=== PATIENT | female | born 1965 | race Caucasian/White ===

== ENCOUNTER → 2016-09-05 16:49 | Outpatient (CLI) | payer OTHER ==
[2012-01-23 11:44] VITALS: BMI 26.7
== END | disposition home or self-care (01) ==
LOC: D.MAMMO 13:15
DX: Z12.31 Encounter for screening mammogram for malignant neoplasm of breast (principal)

== ENCOUNTER 2017-05-28 11:14 | Emergency (ER) | payer BC ==
[2012-01-23 11:44] VITALS: BMI 26.7
== END 2017-05-28 13:17 | disposition home or self-care (01) ==
LOC: D.ER 11:14
DX: S53.402A Unspecified sprain of left elbow, initial encounter (principal); V03.90XA Pedestrian on foot injured in collision with car, pick-up truck or van, unspecified whether traffic or nontraffic accident, initial encounter; Y93.89 Activity, other specified; Y92.89 Other specified places as the place of occurrence of the external cause; S93.402A Sprain of unspecified ligament of left ankle, initial encounter; S50.312A Abrasion of left elbow, initial encounter; S90.512A Abrasion, left ankle, initial encounter

== ENCOUNTER 2017-09-25 11:18 | Outpatient (CLI) | payer BC ==
[~2017-09-25] VITALS: Ht 170.2 cm; Wt 78.2 kg
--- NOTE | ~2017-09-25 | HEMODYNAMI ---
PATIENT:SEYMOUR WHITNEY MEDICAL RECORD: [id number] : 61 LOCATION:[facility] ADMISSION DATE: 09/25/17 Generatedon:09/25/201715:47 Patient name: SEYMOUR WHITNEY Patient #: [id number] SSN: : 1965 Date of study: 09/25/2017 Page: Of Hemodynamic Procedure Report Patient Data Patient Demographics Procedure consent was obtained First Name: SEYMOUR Gender: Female Last Name: DEVONTE : 1965 Middle Initial: AURORA Age: 52 year(s) Patient #: [id number] Race: Unknown Additional ID: [id number] Contact details Address: [place] [address] State: [place] City: [place] Zip code: [address] Past Medical History Allergies Allergen Reaction Date Comments Reported Other allergy 09/25/2017 PCN Admission Admission Data Admission Date: 09/25/2017 Admission Time: 11:18 Admit Source: Other Lab Results Lab Result Date: 09/25/2017 Lab Result Time: 0:47 Biochemistry Name Units Result Min Max BUN mg/dl 7 --(*---)-- 7 18 Creatinine mg/dl 0.6 --(*---)-- 0.6 1.3 CBC Name Units Result Min Max Hematocrit % 38.9 *-(----)-- 42 54 Hemoglobin g/dl 13.8 --(*---)-- 13.5 17.5 Procedure Procedure Types Cath Procedure Diagnostic Procedure LHC LH w/Coronaries Sedation Charges Moderate Sedation up to 15 minutes PCI Procedure Coronary Stent Coronary Stent Initial Procedure Description Procedure Date Procedure Date: 09/25/2017 Procedure Start Time: 15:04 Procedure End Time: 15:31 Procedure Staff Name Function Arvind Mao MD Performing Physician Anthony Wheat RT Monitor Kaveh Huerta RN Nurse Evie Shabazz RT Scrub Procedure Data Cath Procedure Fluoroscopy Diagnostic fluoroscopy Total fluoroscopy Time: 5.1 time: 5.1 min min Diagnostic fluoroscopy Total fluoroscopy dose: 506 dose: 506 mGy mGy Contrast Material Contrast Material Type Amount (ml) Isovue 300 63 Entry Location Entry Primary Successful Side Size Upsize Upsize Entry Closure Escamilla ccessful Closure Location (Fr) 1 (Fr) 2 (Fr) Remarks Device Remarks Radial Right 6 Fr Mechanical artery Short Compression Femoral Right 5 Fr 6 Fr Exoseal artery Short Estimated blood loss: 10 ml Diagnostic catheters Device Type Used For End Catheter Placement DIAGNOSTIC Eureka 110cm 5 Procedure Fr catheter ([id number]) MULTIPACK JL 4.0 5Fr Procedure catheter MULTIPACK 3DRC 5Fr Procedure catheter MULTIPACK Pigtail 5 Fr Procedure catheter Procedure Complications No complications Procedure Medications Medication Administration Route Dosage 0.9% NaCl I.V. 100 ml/hr Oxygen etCO2 Nasal cannula 2 l/min Heparin Flush Bag added to field 2 bags (1000units/500ml NS) Lidocaine 2% added to field 20 Radial Cocktail added to field 1 syringe (Verapomil 2mg/Nitro 400mcg/Heparin 1500units) Versed I.V. 1 mg Fentanyl I.V. 50 mcg Radial Cocktail I.A. 1 syringe (Verapomil 2mg/Nitro 400mcg/Heparin 1500units) Versed I.V. 1 mg Fentanyl I.V. 50 mcg Heparin Bolus I.V. 5000 units Integrilin (Bolus I.V. 6.8 ml 2mg/ml) Integrilin (Bolus wasted 3.2 ml 2mg/ml) Plavix P.O. 600 mg Zofran I.V. 4 mg Hemodynamics Rest HGB: 13.8 (g/dl) Heart Rate: 74 (bpm) Pressure Samples Time Site Value (mmHg) Purpose Heart Use Rate(bpm) 15:17 LV 165/11,13 Snapshot 92 15:18 LV 153/2,13 Pullback 87 15:18 AO 152/76(112) Pullback 87 Gradients Valve Time Site 1 Site 2 Mean SEP/DFP Peak To Heart Use (mmHg) (sec/min) Peak Rate (mmHg) (bpm) Aortic 15:18 LV AO 6 17 1 87 153/2,13 152/76(112) Calculations Valve P-P Mean Valve Index Valve Source Name Gradient Area Flow (cm2) Aortic 1 6 1 6 Snapshots Pre Cath Intra NCS Post Cath Vital Signs Time Heart Resp SPO2 etCO2 NIBP (mmHg) Rhythm Pain Sedation Rate (ipm) (%) (mmHg) Status Level (bpm) 15:01:43 75 15 98 38.2 156/73(124) NSR 0 (11) 10(A) , No pain 15:06:29 80 19 98 37.4 142/79(102) NSR 0 (11) 10(A) , No pain 15:11:14 88 12 95 38.2 136/79(98) NSR 0 (11) 10(A) , No pain 15:16:01 92 14 99 39.7 138/74(112) NSR 0 (11) 10(A) , No pain 15:20:45 83 13 100 38.2 142/77(115) NSR 0 (11) 10(A) , No pain 15:25:32 83 14 100 38.2 148/72(106) NSR 0 (11) 10(A) , No pain 15:30:13 82 13 100 36 135/74(104) NSR 0 (11) 10(A) , No pain Medications Time Medication Route Dose Verified Delivered Reason Not es Effectiveness by by 15:01:56 0.9% NaCl I.V. 100 Kaveh Kaveh Per physician ml/hr Deanna Huerta RN RN 15:02:10 Oxygen etCO2 2 l/min Kaveh Kaveh Per physician Nasal Angelinaigan Deanna cannula RN RN 15:02:22 Heparin Flush added 2 bags Kaveh Kaveh used for Bag to Lorigan Lorigan procedure (1000units/500ml RN RN NS) 15:02:31 Lidocaine 2% added 20ml Kaveh Kaveh for local to vial Lorigan Lorigan anesthetic RN RN 15:02:42 Radial Cocktail added 1 Kaveh Kaveh used for (Verapomil to syringe Lorigan Lorigan procedure 2mg/Nitro RN RN 400mcg/Hepari 15:02:56 Versed I.V. 1 mg Kaveh Kaveh for sedation Deanna Huerta RN RN 15:03:05 Fentanyl I.V. 50 mcg Kaveh Kaveh for sedation Deanna Huerta RN RN 15:06:25 Radial Cocktail I.A. 1 Kaveh Arvind for (Verapomil syringe Lorigan Daylin vasodilation 2mg/Nitro JACKY TANG 400mcg/Hepari 15:06:32 Versed I.V. 1 mg Kaveh Kaveh for sedation Deanna Huerta RN RN 15:06:37 Fentanyl I.V. 50 mcg Kaveh Kaveh for sedation Deanna Huerta RN RN 15:20:29 Heparin Bolus I.V. 5000 Kaveh Kaveh for units Deanna Huerta anticoagulation RN RN 15:20:44 Integrilin I.V. 6.8 ml Kaveh Kaveh for (Bolus 2mg/ml) Deanna Huerta antiplatelet RN RN therapy 15:21:35 Integrilin wasted 3.2ml Kaveh Kaveh to sharp's (Bolus 2mg/ml) Deanna Huerta RN RN 15:26:26 Plavix P.O. 600 mg Kaveh Kaveh for Deanna Huerta antiplatelet RN RN therapy 15:47:13 Zofran I.V. 4 mg Kaveh Kaveh for nausea Deanna Huerta RN electric meter repairer Log Time Note 14:41:31 Informed consent obtained and on chart 14:41:34 Admit Source: Other 14:41:46 Diagnostic Cath status Elective 14:41:47 Kaveh Huerta RN sent for patient. Start room use. 14:41:48 Time tracking: Regular hours (M-F 7:00 - 5:00) 14:41:51 Plan of Care:Hemodynamics will remain stable., Cardiac rhythm will remain stable., Comfort level will be maintained., Respiratory function will remain adequate., Patient/ family verbilizes understanding of procedure., Procedure tolerated without complication., Recovers from procedure without complications.. 14:43:11 HCG/Urine : completed and on chart, negative 14:48:39 Patient received from Pre/Post Procedure Room to CCL 1 Alert and oriented. Tansferred to table in Supine position. 14:48:41 Correct patient and procedure confirmed by team. 14:48:41 Warm blankets applied, and dale hugger turned on for patient comfort. 14:48:42 ECG and BP/O2 sat monitors applied to patient. 14:48:51 H&P Date Dictated: 09/24/2017 Within 30 days and on chart., H&P Addendum completed by physician on day of procedure. (MUST COMPLETE FOR ALL OUTPATIENTS). 14:48:52 Pre-op teaching completed and patient verbalized understanding. 14:48:52 Pre-procedure instructions explained to patient. 14:48:54 Family in waiting room. 14:48:55 Patient NPO since Midnight. 14:49:08 Patient allergic to Other allergyPCN 15:00:43 Vital chart was started 15:00:44 Baseline sample Acquired. 15:00:47 Rhythm: sinus rhythm 15:00:49 Full Disclosure recording started 15:00:51 Is the patient allergic to Iodine/contrast media? No. 15:00:53 Is patient on blood thinner?No 15:00:55 Patient diabetic? No. 15:01:01 Previous problem with sedation/anesthesia? Yes NAUSEA 15:01:04 Snore? Yes 15:01:05 Sleep apnea? No 15:01:06 Opens mouth fully? Yes 15:01:06 Deviated septum? No 15:01:07 Sticks out tongue? Yes 15:01:08 Airway obstruction? No ? 15:01:13 Dentures? Yes IN TIGHT 15:01:16 Pre procedure: right dorsailis pedis pulse 2+ Normal; easily identifiable; not easily obliterated 15:01:17 Modified Julio C's test Ulnar < 7 seconds 15:01:19 Patient pain scale 0/10 ?. 15:01:22 IV patent on arrival in left forearm with 0.9% NaCl at [facility]. 15:01:56 0.9% NaCl 100 ml/hr I.V. was administered by Kaveh Huerta RN; Per physician; 15:02:06 Lab Result : Hemoglobin 13.8 g/dl 15:02:06 Lab Result : Hematocrit 38.9 % 15:02:06 Lab Result : BUN 7 mg/dl 15:02:06 Lab Result : Creatinine 0.6 mg/dl 15:02:09 Lab results completed and on chart. 15:02:10 Oxygen 2 l/min etCO2 Nasal cannula was administered by Kaveh Huerta RN; Per physician; 15:02:11 Right Radial & Right Groin area was prepped with chlora-prep and draped in sterile fashion 15:02:13 Sharps counted by scrub and verified by R.N. 15:02:13 Alarms reviewed by R. N. 15:02:21 Use device set Radial Dx or PCI 15:02:22 Medline Cath Pack ([id number]) opened to sterile field. 15:02:22 ACIST Syringe (21669) opened to sterile field. 15:02:22 Heparin Flush Bag (1000units/500ml NS) 2 bags added to field was administered by Kaveh Huerta RN; used for procedure; 15:02:23 Bag Decanter (2002S) opened to sterile field. 15:02:24 Tegaderm 4 x 4 (1626W) opened to sterile field. 15:02:24 ACIST Manifold (97558) opened to sterile field. 15:02:24 ACIST Hand Control (65057) opened to sterile field. 15:02:25 MBrace Wrist Support ([id number]) opened to sterile field. 15:02:26 SHEATH 6Fr Prelude Radial ([id number]) opened to sterile field. 15:02:27 DIAGNOSTIC WIRE .035 260cm J wire (629099) opened to sterile field. 15:02:31 Lidocaine 2% 20ml vial added to field was administered by Kaveh Huerta RN; for local anesthetic; 15:02:34 Physician arrived 15:02:35 --------ALL STOP TIME OUT------ 15:02:36 Final Timeout: patient, procedure, and site verified with staff and physician. All members of the team are in agreement. 15:02:37 Right Radial & Right Groin site verified by team. 15:02:40 Physical assessment completed. ASA score P 2 - A patient with mild systemic disease as per Arvind Mao MD. 15:02:42 Radial Cocktail (Verapomil 2mg/Nitro 400mcg/Heparin 1500units) 1 syringe added to field was administered by Kaveh Huerta RN; used for procedure; 15::44 Sedation plan: IV Moderate Sedation Medication:Versed, Fentanyl 15:02:56 Versed 1 mg I.V. was administered by Kaveh Huerta RN; for sedation; 15:03:05 Fentanyl 50 mcg I.V. was administered by Kaveh Huerta RN; for sedation; 15:04:25 Procedure started. 15:04:27 Local anesthetic to right radial artery with Lidocaine 2% by Arvind Mao MD.INITIAL ACCESS ONLY 15:05:42 A 6 Fr Short sheath was inserted into the Right Radial artery 15:05:44 Zero performed for pressure channel P1 15:06:25 Radial Cocktail (Verapomil 2mg/Nitro 400mcg/Heparin 1500units) 1 syringe I.A. was administered by Arvind Mao MD; for vasodilation; 15:06:32 Versed 1 mg I.V. was administered by Kaveh Huerta RN; for sedation; 15:06:37 Fentanyl 50 mcg I.V. was administered by aKveh Huerta RN; for sedation; 15:07:20 A DIAGNOSTIC Eureka 110cm 5 Fr catheter (272045) was advanced over the wire and used for Procedure. 15:09:15 GLIDE WIRE ANGLE 260cm (VI3212) opened to sterile field. 15:10:52 GLIDE WIRE wire advanced. 15:10:54 Wire removed. 15:11:18 UNABLE TO ADVANCE CATHETER. MOVING TO FEMORAL APPROACH. 15:11:23 Local anesthetic to right femoral artery with Lidocaine 2% by Arvind Mao MD.ADDITIONAL ACCESS 15:11:29 SHEATH Prelude 5Fr 0.035 (NYT-7F-36-035) opened to sterile field. 15:11:35 Use device set Multipack Set 15:12:35 A 5 Fr sheath was inserted into the Right Femoral artery 15:12:49 DIAGNOSTIC Multipack 5Fr catheter set ([id number]) opened to sterile field. 15:12:56 A MULTIPACK JL 4.0 5Fr catheter was advanced over the wire and used for Procedure. 15:13:48 LCA angiography performed. 15:15:08 Catheter exchanged over wire. 15:15:29 A MULTIPACK 3DRC 5Fr catheter was advanced over the wire and used for Procedure. 15:15:54 RCA angiography performed. 15:16:04 Catheter exchanged over wire. 15:16:07 A MULTIPACK Pigtail 5 Fr catheter was advanced over the wire and used for Procedure. 15:16:18 SHEATH Prelude 6Fr 0.035 (HNT-2M-24-035) opened to sterile field. 15:16:28 COUGAR 300cm guide wire ([id number]) opened to sterile field. 15:16:31 INFLATOR Merit BasixCompak (OM2727) opened to sterile field. 15:17:20 LV gram done using VIRK 15:17:26 Injector settings: Ml/sec: 10, Volume: 20, 15:17:28 LV hemodynamics recorded. 15:17:40 EF : 50 % 15:18:09 GUIDE 6FR HS I catheter (LA6HSI) opened to sterile field. 15:18:26 Catheter removed. 15:18:34 Sheath upsized to a 6 Fr Short. 15:18:54 6 Fr HSI guide catheter was inserted over the wire 15:20:29 Heparin Bolus 5000 units I.V. was administered by Kaveh Huerta RN; for anticoagulation; 15:20:35 COUGAR wire advanced. 15:20:44 Integrilin (Bolus 2mg/ml) 6.8 ml I.V. was administered by Kaveh Huerta RN; for antiplatelet therapy; 15:21:35 Integrilin (Bolus 2mg/ml) 3.2ml wasted was administered by Kaveh Huerta RN; to sharp's; 15:22:30 Wire advanced across lesion. 15:23:51 Place stent Inflation Number: 1 A INTEGRITY OTW 3.5 X 15 stent ([id number]) was prepped and advanced across the Mid RCA. The stent was deployed at 14 CARLIE for 0:15 (min:sec). 15:24:10 Wire removed. 15:24:10 Stent catheter was removed intact over wire. 15:24:11 Guide catheter removed. 15:24:18 EXOSEAL 6Fr (EX600) opened to sterile field. 15:24:28 Sheath removed intact; hemostasis achieved with Exoseal to the Right Femoral artery. 15:24:32 TR BAND Standard (YWD12XMP) opened to sterile field. 15:24:40 Sheath removed intact; hemostasis achieved with Mechanical Compression to the Right Radial artery. 15:24:41 Procedure ended.(Physican Out) 15::26 Plavix 600 mg P.O. was administered by Kaveh Huerta RN; for antiplatelet therapy; ::42 Fluoroscopy time 05.10 minutes. 15::47 Fluoroscopy dose: 506 mGy 15::47 Flurop Dose total: 506 15::51 Contrast amount:Isovue 300 63ml. 15::52 Sharps counted by scrub and verified by R.N. 15::45 TR band inflated with 12cc of air. 15::47 Insertion/operative site no bleeding no hematoma. 15:29:06 Post-op/insertion site Right Femoral artery dressed using a 4 x 4 and Tegaderm. 15:29:10 Post right femoral artery:stable, soft, clean and dry 15:29:17 Post right radial artery:stable, soft, clean and dry 15:29:18 Post Procedure Pulses reassessed and unchanged 15:29:20 Post-procedure physical assessment completed. ASA score P 2 - A patient with mild systemic disease as per Arvind Mao MD. 15:29:23 Post procedure rhythm: unchanged. 15:29:26 Estimated blood loss: 10 ml 15:29:27 Post procedure instruction explained to patient.Patient verbalizes understanding. 15:29:28 Patient needs reinforcement of post procedure teaching. 15:29:39 Procedure type changed to Cath procedure, Diagnostic procedure, LHC, LHC w/Coronaries, Sedation Charges, Moderate Sedation up to 15 minutes, PCI procedure, Coronary Stent, Coronary Stent Initial 15:31:48 Procedure and supply charges have been captured, reviewed, submitted and are correct. 15:31:50 Procedure Complication : No complications 15:31:52 Vital chart was stopped 15:31:53 See physician's report for complete and final results. 15:31:54 Report given to Pre/Post Procedure Room. 15:31:57 Patient transfered to Pre/Post Procedure Room with Stretcher. 15:31:58 Full Disclosure recording stopped 15:31:58 Procedure ended. 15:32:02 End room use (Document Last) 15:46:52 Femstop placed over the right femoral artery at 155 mmHg. Hemostasis achieved. 15:46:55 FEMSTOP Gold (A49286) opened to sterile field. 15:47:13 Zofran 4 mg I.V. was administered by Kaveh Huerta RN; for nausea; Intervention Summary Intervention Notes Time ActionType Lesion and Equipment Action# Pressure Duration Attributes Used 15:23:51 Place stent Mid RCA INTEGRITY 1 14 00:15 OTW 3.5 X 15 stent ([id number]) Device Usage Item Name Manufacture Quantity Catalog Number Hospital Part Current Minimal Lot# / Charge Number Stock Stock Serial# Code ACIST Syringe Acist 1 77007 815257 328208 275691 20 (52157) Medical Systems ImpactGames Medline Cath Cardinal 1 [id number] 630214 88733 201507 5 Pack Health ([id number]) Bag Decanter Microtek 1 809877 17677 856532 5 () Medical Inc. ACIST Hand Acist 1 72347 063015 587144 612299 5 Control (77103) Medical Systems Inc ACIST Manifold Acist 1 25819 813522 903612 696150 5 (53019) Medical Systems Inc Tegaderm 4 x 4 3M 1 1626W 910086 020099 146416 5 (1626W) MBrace Wrist Advanced 1 140-0250-00 494593 82351 397920 5 Support Vascular ([id number]) Dynamics SHEATH 6Fr Merit 1 [id number] 036552 488119 192569 5 Prelude Radial Medical ([id number]) DIAGNOSTIC WIRE St Clif 1 751937 551956 231779 349887 30 .035 260cm J wire (596957) DIAGNOSTIC Terumo 1 40-3643 544796 368533 128052 5 Eureka 110cm 5 Fr catheter (662642) GLIDE WIRE Terumo 1 CU4020 340713 337802 685451 5 ANGLE 260cm (AJ1077) SHEATH Prelude Merit 1 AXQ-7G-62-035 893093 769888 746230 5 5Fr 0.035 Medical (IST-7I-59-035) DIAGNOSTIC Cardinal 1 WS9139 146430 86087 956940 30 Multipack 5Fr Health catheter set (PT7987) MULTIPACK JL Cardinal 1 600491 5 4.0 5Fr Health catheter MULTIPACK 3DRC Cardinal 1 950810 5 5Fr catheter Health MULTIPACK Cardinal 1 511524 5 Pigtail 5 Fr Health catheter SHEATH Prelude Merit 1 VQH-2D-92-35 952265 3181425 989709 5 6Fr 0.035 Medical (KQL-4E-78-035) COUGAR 300cm Gauthier 1 [id number] 956074 915891 428982 1 guide wire Vascular ([id number]) INFLATOR Merit Merit 1 KK9879 752371 365619 673399 15 BasixCompak Medical (TQ8194) INTEGRITY OTW Medtronic 1 [id number] 427011 115350 8 [id number] 3.5 X 15 stent ([id number]) EXOSEAL 6Fr Cardinal 1 EX600 101899 204613 249219 10 (EX600) Health TR BAND Terumo 1 PTL48-PZF 346869 292484 494809 40 Standard ([id number]) GUIDE 6FR HS I Medtronic 1 LA6HSI 240670 50011 721811 1 catheter (LA6HSI) FEMSTOP Gold St Clif 1 Q61757 249586 546578 279923 5 (H99756) Signature Audit [place] Stage Time Signature Unsigned Intra-Procedure 09/25/2017 Anthony Wheat RT(R) 3:32:25 PM RT(R) 09/25/2017 3:46:16 PM Intra-Procedure 09/25/2017 Anthony Wheat 3:47:32 PM RT(R) Signatures Monitor : Anthony Wheta RT Signature : Date : Time : [place] [id number] [place] [address]
--- NOTE | ~2017-09-25 | HP ---
PATIENT: SEYMOUR WHITNEY MEDICAL RECORD: [id number] ACCOUNT: [id number] LOCATION:[facility] : 61 ADMISSION DATE: 09/25/17 HISTORY AND PHYSICAL EXAMINATION HISTORY OF PRESENT ILLNESS: A 52-year-old lady with a history of coronary artery disease, status post inferior myocardial infarction, subsequent stenting, presented to the office after a protracted absence with exertional angina, underwent cardiac stress testing, which showed reversible ischemia along the inferior leads, being brought in for diagnostic angiography. PAST MEDICAL HISTORY: 1. History of coronary artery disease, status post intervention. 2. Hypertension. 3. Hyperlipidemia. MEDICATIONS: Atorvastatin 20 every day, carvedilol 3.125 b.i.d., and aspirin 81 every day. PHYSICAL EXAMINATION: GENERAL: A pleasant female in no acute distress. HEENT: Normocephalic, atraumatic. NECK: No JVD or bruit. HEART: Regular. LUNGS: Shabazz clear. EXTREMITIES: Pulse 2+. No edema. IMPRESSION: Known history of coronary artery disease, recurrent ischemia via nuclear stress testing. PLAN: Angiographic intervention based on the above. TRANSINT:[id number] Voice Confirmation ID: [id number] DOCUMENT ID: [id number] KAHLIL ROD MD at 1449 CC: [id number] DICTATION DATE: 10/02/17 1319 DOCUMENT SPECIALIST: 10/02/17 1329 DEP CLI 09/25/17 [place] [id number]
--- NOTE | ~2017-09-25 | OP ---
PATIENT NAME: SEYMOUR WHITNEY MEDICAL RECORD: [id number] :61 LOCATION:[facility] ADMISSION DATE: SURGEON: KAHLIL ROD MD DATE OF OPERATION: 09/25/2017 PROCEDURE: Left heart catheterization, selective coronary angiography, right femoral artery approach. CATHETERS: A 5-Marshallese sheath, 5/4 left and right Flores, 5/4 pig. The procedure was well tolerated. The patient returned to the manzo. Sheath removed. ExoSeal device placed. FINDINGS: Left ventriculography in 30 degrees VIRK view: Normal wall motion, normal systolic function. CORONARY ANATOMY: LEFT MAIN: Left main is free of disease. LAD: Free of disease in the diagonal system. CIRCUMFLEX: Free of disease in the marginal system. RIGHT CORONARY ARTERY: Large dominant artery, gives rise to PL, PDA and this shows a mid portion stenosis of 80%, correlating nicely to major study. IMPRESSION: Plan intervention of the right momentarily. DESCRIPTION OF PROCEDURE: A 5-Marshallese sheath was exchanged for 6-Marshallese sheath. Hockey stick guiding catheter provided excellent guide catheter support followed by 300 cm Blum XT wire placed across the distal portion of the lesion down the distal portion of vessel. Next, a 3.5 x 15 mm Integrity nondrug eluting stent was inflated up to 14 atmospheres for 45 seconds. Final injection shows excellent resolution of an 80% stenosis. No significant residual. RANDALL flow was 3 throughout the procedure. Integrilin was used during the case. Sheath closed with ExoSeal device. TRANSINT:[id number] Voice Confirmation ID: [id number] DOCUMENT ID: [id number] KAHLIL ROD MD at 1449 CC: [id number] DICTATION DATE: 09/25/17 1535 BOILER TESTING TECHNICIAN: 09/25/17 1618 DEP CLI 09/25/17 [place] [id number] [facility]
[2017-09-25 12:52] VITALS: BP 159/73; Ht 170.2 cm; Wt 78.2 kg
[2017-09-25 12:52] LABS: BASOPHILS 0.7 % (0-2); EOSINOPHILS 2.4 % (0-7); HEMATOCRIT 38.9 % (36.0-48.0); HEMOGLOBIN 13.8 g/dL (12-16); IMMATURE GRANULOCYTES 0.1 % (0-5); LYMPHOCYTES 30.5 % (15-50); MCHC 35.5 g/dL (31.0-37.0); MCV 81.7 fL (80.0-100.0); MEAN PLATELET VOLUME 10.7 fL (7.4-10.4); MONOCYTES 9.1 % (2-11); NEUTROPHILS 57.2 % (40-80); PLATELET COUNT 287 10x3/uL (130-400); RBC 4.76 10x6/uL (4.00-5.40); RDW 13.1 % (11.5-14.5); WBC 6.8 10x3/uL (4.8-10.8)
[2017-09-25] MEDS ORDERED: COREG6.25 MG PO (12:56)
[2017-09-25] MEDS ORDERED: ZOFRAN ODT4 MG/UDTAB PO (12:57)
[2017-09-25] MEDS ORDERED: VOLTAREN75 MG PO (12:58)
[2017-09-25] MEDS ORDERED: LIPITOR20 MG PO (12:59)
[2017-09-25] MEDS ORDERED: LEXAPRO10 MG PO (12:59)
[2017-09-25] MEDS ORDERED: OTEZLA 30 MG TABLET (12:59)
[2017-09-25] MEDS ORDERED: KLONOPIN1 MG PO (13:00)
[2017-09-25 13:02] LABS: CALC OSMOLALITY 275 mosm/kg (275-300); CARBON DIOXIDE 27.6 mmol/L (21.0-32.0); CHLORIDE - SERUM 103 mmol/L (98-107); CREATININE - SERUM 0.6 mg/dL (0.6-1.3); GLUCOSE 87 mg/dL (74-106); POTASSIUM - SERUM 3.7 mmol/L (3.5-5.1); SODIUM 140 mmol/L (136-145); UREA NITROGEN 7 mg/dL (7-18); eGFR NON AFRICAN AMERICAN > 90 mL/min (90-120)
[2017-09-25 13:19] LABS: HCG SERUM NEGATIVE (NEGATIVE)
[2017-09-25] MEDS ORDERED: PLAVIX75 MG PO (15:51)
== END 2017-09-25 19:22 | disposition home or self-care (01) ==
LOC: D.CATH 11:18
PROVIDERS: Internal Medicine Interventional Cardiology
DX: I25.119 Atherosclerotic heart disease of native coronary artery with unspecified angina pectoris (principal); Z01.812 Encounter for preprocedural laboratory examination

== ENCOUNTER → 2017-10-07 11:05 | Outpatient (CLI) | payer BC ==
[2017-09-25 12:52] VITALS: BMI 27.0
[~2017-10-07 11:05] MED LIST: COREG6.25 MG PO; KLONOPIN1 MG PO; LEXAPRO10 MG PO; LIPITOR20 MG PO; OTEZLA 30 MG TABLET; PLAVIX75 MG PO; VOLTAREN75 MG PO; ZOFRAN ODT4 MG/UDTAB PO
== END | disposition home or self-care (01) ==
LOC: D.US 11:05
DX: S80.11XA Contusion of right lower leg, initial encounter (principal); X58.XXXA Exposure to other specified factors, initial encounter

== ENCOUNTER → 2018-10-22 07:50 | Outpatient (CLI) | payer MEDICARE ==
[2017-09-25 12:52] VITALS: BMI 27.0
--- NOTE | ~2018-10-22 | ST ---
PATIENT:SEYMOUR WHITNEY MEDICAL RECORD: [id number] SEX: F LOCATION:[facility] ORDER #: ADMISSION DATE: 10/22/18 AGE OF PATIENT: 53 REFERRING PHYSICIAN: INTERPRETING PHYSICIAN: DEVON FELDMAN MD DATE OF SERVICE: 10/22/2018 PROCEDURE: Nuclear stress test. INDICATION: Angina, coronary artery disease, and hypertension. The patient was exercised on standard Lexiscan protocol with 27 mCi of sestamibi injected at peak stress, 9 mCi used previously for rest images. FINDINGS: Gated SPECT reveals a preserved ejection fraction at 63% with decreased thickening and brightening throughout the inferior segments. SPECT imaging Cardiolite was used as myocardial perfusion agent. There is a fixed perfusion defect inferiorly compatible with previous inferior myocardial infarction; however, there is reversible ischemia anteriorly, apically, and laterally. This includes the basal, mid, apical anterior segments, apical lateral, mid lateral, basal lateral segments as well as the apex itself. The degree of reversibility is moderate. The amount of myocardium involved is very large. OVERALL IMPRESSION: This is a markedly abnormal nuclear stress test, high risk in that it shows a fixed perfusion defect inferiorly, reversible ischemia anteriorly, apically, and laterally suggestive of multivessel coronary artery disease. TRANSINT:[id number] Voice Confirmation ID: [id number] DOCUMENT ID: [id number] DEVON FELDMAN MD CC: IRENA FREIRE [id number] DICTATION DATE: 10/28/18940 BALL MACHINE OPERATOR: 10/28/18 230 DEP CLI 10/22/18 [place] [id number] [place] [id number]
== END | disposition home or self-care (01) ==
LOC: D.HCCARDIO 07:50
PROVIDERS: ATTEND Internal Medicine Interventional Cardiology
DX: I25.10 Atherosclerotic heart disease of native coronary artery without angina pectoris (principal)

== ENCOUNTER 2018-11-05 10:31 | Outpatient (CLI) | payer MEDICARE ==
[~2018-11-05] VITALS: Ht 170.2 cm; Wt 75.5 kg
--- NOTE | ~2018-11-05 | HEMODYNAMI ---
PATIENT:SEYMOUR WHITNEY MEDICAL RECORD: [id number] : 61 LOCATION:[facility] ADMISSION DATE: 11/05/18 Generatedon:11/05/201813:51 Patient name: SEYMOUR WHITNEY Patient #: [id number] SSN: [id number] : 1965 Date of study: 11/05/2018 Page: Of Hemodynamic Procedure Report Patient Data Patient Demographics Procedure consent was obtained First Name: SEYMOUR Gender: Female Last Name: DEVONTE : 1965 Middle Initial: AURORA Age: 53 year(s) Patient #: [id number] Race: SSN: [id number] Additional ID: [id number] Contact details [address]: [address] [place] [address] [address] State: [place] City: [facility] Zip code: [address] Past Medical History Allergies Allergen Reaction Date Comments Reported Other allergy 09/25/[address] [facility] Admission Admission Data Admission Date: 11/05/2018 Admission Time: 10:31 Arrival Date: 11/05/2018 Arrival Time: 13:15 Admit Source: Other Insurance Payor: Private health insurance Height (in.): 67 BSA: 1.87 (m2) Height (cm.): 170.18 BMI: 26 (kg/m2) Weight (lbs.): 166 Weight (kg.): 75.3 Lab Results Lab Result Date: 11/05/2018 Lab Result Time: 0:00 Biochemistry Name Units Result Min Max BUN mg/dl 14 --(--*-)-- 7 18 Creatinine mg/dl 0.8 --(-*--)-- 0.6 1.3 eGFR ml/min 79.75660 *-(----)-- 90 120 NONAFRICAN CBC Name Units Result Min Max Hemoglobin g/dl 13.9 --(*---)-- 13.5 17.5 Procedure Procedure Types Cath Procedure Diagnostic Procedure LHC LHC w/Coronaries Sedation Charges Moderate Sedation up to 15 minutes PCI Procedure Coronary Stent Coronary Stent Initial Procedure Description Procedure Date Procedure Date: 11/05/2018 Procedure Start Time: 13:25 Procedure End Time: 13:43 Procedure Staff Name Function Arvind Mao MD Performing Physician Sveta Mccormack RT Monitor Anthony Wheat RT Scrub Kaveh Huerta RN Nurse Procedure Data Cath Procedure Fluoroscopy Diagnostic fluoroscopy Total fluoroscopy Time: 2.5 time: 2.5 min min Diagnostic fluoroscopy Total fluoroscopy dose: 525 dose: 525 mGy mGy Contrast Material Contrast Material Type Amount (ml) Isovue 300 82 Entry Location Entry Primary Successful Side Size Upsize Upsize Entry Closure Succes sful Closure Location (Fr) 1 (Fr) 2 (Fr) Remarks Device Remarks Femoral Right 5 Fr 6 Fr Exoseal artery Short Estimated blood loss: 5 ml Diagnostic catheters Device Type Used For End Catheter Placement MULTIPACK JL 4.0 5Fr Left Coronary catheter Angiography MULTIPACK 3DRC 5Fr Right Coronary catheter Angiography MULTIPACK Pigtail 5 Fr LV Angiography catheter Procedure Complications No complications Procedure Medications Medication Administration Route Dosage 0.9% NaCl I.V. 100 ml/hr Oxygen etCO2 Nasal cannula 2 l/min Heparin Flush Bag added to field 2 bags (1000units/500ml NS) Lidocaine 2% added to field 20 Benadryl I.V. 50 mg Versed I.V. 2 mg Fentanyl I.V. 100 mcg Heparin Bolus I.V. 5000 units Integrilin (Bolus I.V. 6.8 ml 2mg/ml) Integrilin (Bolus wasted 3.2 ml 2mg/ml) Plavix P.O. 600 mg Zofran I.V. 4 mg Hemodynamics Rest BSA: 1.87 (m2) HGB: 13.9 (g/dl) O2 Consumption: Estimated: 173.99 (ml/min) O2 Co nsumption indexed: Estimated:93.04 (ml/min/m) Heart Rate: 61 (bpm) Pressure Samples Time Site Value (mmHg) Purpose Heart Use Rate(bpm) 13:32 LV 160/21,24 Snapshot 64 13:33 AO 181/82(131) Pullback 76 13:33 LV 147/19,24 Pullback 76 Gradients Valve Time Site 1 Site 2 Mean SEP/DFP Peak To Heart Use (mmHg) (sec/min) Peak Rate (mmHg) (bpm) Aortic 13:33 LV AO 0 76 147/19,24 181/82(131) Calculations Valve P-P Mean Valve Index Valve Source Name Gradient Area Flow (cm2) Aortic 0 0 Snapshots Pre Cath Intra NCS Post Cath Vital Signs Time Heart Resp SPO2 etCO2 NIBP (mmHg) Rhythm Pain Sedation Rate (ipm) (%) (mmHg) Status Level (bpm) 13:16:34 65 14 99 36.6 155/70(107) NSR 0 (11) 10(A) , No pain 13:20:56 58 17 100 38.8 149/72(103) NSR 0 (11) 10(A) , No pain 13:25:16 70 15 96 38 145/75(110) NSR 0 (11) 10(A) , No pain 13:29:38 73 17 91 17.1 139/66(99) NSR 0 (11) 9(A) , No pain 13:34:35 82 17 93 0 150/66(95) NSR 0 (11) 9(A) , No pain 13:38:45 85 19 92 21.6 123/67(94) NSR 0 (11) 9(A) , No pain 13:42:53 94 10 99 10.4 132/82(109) NSR 0 (11) 10(A) , No pain Medications Time Medication Route Dose Verified Delivered Reason Notes Effectiveness by by 13:18:38 0.9% NaCl I.V. 100 Kaveh Kaveh Per physician ml/hr Deanna Huerta RN RN 13:18:48 Oxygen etCO2 2 Kaveh Kaveh for low 02 sats Nasal l/min Deanna Huerta cannula RN RN 13:18:59 Heparin Flush added 2 Kaveh Kvaeh used for Bag to bags Deanna Huerta procedure (1000units/500ml field RICO RN NS) 13:19:10 Lidocaine 2% added 20ml Kaveh Kaveh for local to vial Deanna Huerta anesthetic field JACKY RICO 13:19:26 Benadryl I.V. 50 mg Kaveh Kaveh Per physician Deanna Huerta RN RN 13:25:32 Versed I.V. 2 mg Kaveh Kaveh for sedation Deanna Huerta RN, RN 13:25:41 Fentanyl I.V. 100 Kaveh Kaveh for sedation mcg Deanna Huerta RN, RN 13:35:25 Heparin Bolus I.V. 5000 Kaveh Kaveh for units Deanna Huerta anticoagulation RN RN 13:35:43 Integrilin I.V. 6.8 Kaveh Kaveh for (Bolus 2mg/ml) ml Deanna Huerta antiplatelet RN RN therapy 13:35:52 Integrilin wasted 3.2 Kaveh Kaveh to sharp's (Bolus 2mg/ml) ml Deanna Huerta RN RN 13:44:59 Plavix P.O. 600 Kaveh Kaveh for mg Deanna Huerta antiplatelet RN RN therapy 13:45:19 Zofran I.V. 4 mg Kaveh Kaveh for nausea Deanna Huerta RN silk soaker Log Time Note 12:59:55 Diagnostic Cath Status : Elective 13:00:00 Anthony Wheat RT(R) sent for patient. Start room use. 13:00:40 Informed consent obtained and on chart 13:01:12 Patient Height : 67 inches 13:01:16 Patient Weight : 166 lbs 13:01:16 Admit Source: Other 13:01:21 Insurance Payor : Private health insurance 13:01:26 Arrival Date: 11/05/2018 1:15:00 PM 13:04:54 Lab Result : eGFR NONAFRICAN 79.05271 ml/min 13:04:54 Lab Result : BUN 14 mg/dl 13:04:54 Lab Result : Creatinine 0.8 mg/dl 13:04:54 Lab Result : Hemoglobin 13.9 g/dl 13:05:10 2) 60-89 Mildly reduced kidney function, and other findings (as for stage 1) point to kidney disease. 13:05:13 Maximum allowable contrast dose (3.7 X eGFR X 0.75)219 ml. 13:07:08 Time tracking: Regular hours (M-F 7:00 - 5:00) 13:07:11 Plan of Care:Hemodynamics will remain stable., Cardiac rhythm will remain stable., Comfort level will be maintained., Respiratory function will remain adequate., Patient/ family verbilizes understanding of procedure., Procedure tolerated without complication., Recovers from procedure without complications.. 13:07:16 Patient received from Pre/Post Procedure Room to CCL 2 Alert and oriented. Tansferred to table in Supine position. 13:07:17 Warm blankets applied, and dale hugger turned on for patient comfort. 13:07:18 Correct patient and procedure confirmed by team. 13:07:18 ECG and BP/O2 sat monitors applied to patient. 13:15:20 Baseline sample Acquired. 13:15:20 Vital chart was started 13:15:24 Rhythm: sinus rhythm 13:15:26 Full Disclosure recording started 13:15:29 H&P Date Dictated: 11/05/2018 Within 30 days and on chart., H&P Addendum completed by physician on day of procedure. (MUST COMPLETE FOR ALL OUTPATIENTS). 13:15:33 Pre-procedure instructions explained to patient. 13:15:34 Pre-op teaching completed and patient verbalized understanding. 13:15:35 Family in waiting room. 13:15:37 Patient NPO since Midnight. 13:15:38 Is the patient allergic to Iodine/contrast media? No. 13:15:39 Was the patient premedicated? No 13:15:41 Is patient on blood thinner?No 13:15:43 Patient diabetic? No. 13:15:47 Previous problem with sedation/anesthesia? Yes nausea 13:15:50 Snore? No 13:15:51 Sleep apnea? No 13:15:51 Deviated septum? No 13:15:53 Opens mouth fully? Yes 13:15:54 Sticks out tongue? Yes 13:15:55 Airway obstruction? No ? 13:15:59 Dentures? Yes in tight 13:16:02 Pre procedure: right dorsailis pedis pulse 2+ Normal; easily identifiable; not easily obliterated 13:16:04 Pre procedure: left dorsailis pedis pulse 2+ Normal; easily identifiable; not easily obliterated 13:16:06 Patient pain scale 0/10 ?. 13:16:11 IV patent on arrival in left forearm with 0.9% NaCl at [facility]. 13:16:13 Lab results completed and on chart. 13:17:55 Right groin area was prepped with chlora-prep and draped in sterile fashion 13:17:56 Alarms reviewed by R. N. 13:17:56 Sharps counted by scrub and verified by R.N. 13:17:57 Physician arrived 13:17:57 --------ALL STOP TIME OUT------ 13:17:59 Final Timeout: patient, procedure, and site verified with staff and physician. All members of the team are in agreement. 13:18:00 Right groin site verified by team. 13:18:05 Fire Safety Assessment: A--An alcohol-based skin anteseptic being used preoperatively., C--Open oxygen or nitrous oxide is being used., D--An ESU, laser, or fiber-optic light is being used. 13:18:08 Physical assessment completed. ASA score P 2 - A patient with mild systemic disease as per Arvind Mao MD. 13:18:13 Sedation plan: IV Moderate Sedation Medication:Versed, Fentanyl 13:18:18 Use device set Femoral Dx 13:18:20 ACIST Syringe (12077) opened to sterile field. 13:18:20 Bag Decanter (2002S) opened to sterile field. 13:18:21 Medline Cath Pack ([id number]) opened to sterile field. 13:18:22 ACIST Hand Control (93244) opened to sterile field. 13:18:23 ACIST Manifold (28207) opened to sterile field. 13:18:23 DIAGNOSTIC Multipack 5Fr catheter set (IB7580) opened to sterile field. 13:18:24 Tegaderm 4 x 4 (1626W) opened to sterile field. 13:18:25 SHEATH 5FR [place] (RIK114) opened to sterile field. 13:18:25 EMERALD Guide Wire (487-986) opened to sterile field. 13:18:38 0.9% NaCl 100 ml/hr I.V. was administered by Kaveh Huerta RN; Per physician; Verbal order read back and verified. 13:18:48 Oxygen 2 l/min etCO2 Nasal cannula was administered by Kaveh Huerta RN; for low 02 sats; Verbal order read back and verified. 13:18:59 Heparin Flush Bag (1000units/500ml NS) 2 bags added to field was administered by Kaveh Huerta RN; used for procedure; Verbal order read back and verified. 13:19:10 Lidocaine 2% 20ml vial added to field was administered by Kaveh Huerta RN; for local anesthetic; Verbal order read back and verified. 13:19:26 Benadryl 50 mg I.V. was administered by Kaveh Huerta RN; Per physician; Verbal order read back and verified. 13:23:12 Zero performed for pressure channel P1 13:25:32 Versed 2 mg I.V. was administered by Kaveh Huerta RN; for sedation; Verbal order read back and verified. 13:25:39 Procedure started. 13:25:41 Fentanyl 100 mcg I.V. was administered by Kaveh Huerta RN; for sedation; Verbal order read back and verified. 13:25:42 Local anesthetic to right femoral artery with Lidocaine 2% by Arvind Mao MD.INITIAL ACCESS ONLY 13:26:37 A 5 Fr sheath was inserted into the Right Femoral artery 13:27:49 A MULTIPACK JL 4.0 5Fr catheter was advanced over the wire and used for Left Coronary Angiography. 13:28:58 LCA angiography performed. 13:29:01 Injector settings: Ml/sec: 3, Volume: 6, 13:29:52 Catheter removed. 13:29:57 A MULTIPACK 3DRC 5Fr catheter was advanced over the wire and used for Right Coronary Angiography. 13:30:00 RCA angiography performed. 13:30:03 Injector settings: Ml/sec: 3, Volume: 6, 13:30:23 Catheter removed. 13:30:33 A MULTIPACK Pigtail 5 Fr catheter was advanced over the wire and used for LV Angiography. 13:31:33 WHISPER 300cm guide wire ([id number]) opened to sterile field. 13:31:33 GUIDE 6FR XBLAD 3.5 catheter ([id number]) opened to sterile field. 13:31:34 INFLATOR Merit BasixCompak (ID2564) opened to sterile field. 13:31:34 SHEATH 6FR [place] (HVY662) opened to sterile field. 13:31:56 ACC Pre-intervention RANDALL Flow is 3. 13:32:40 LV hemodynamics recorded. 13:32:41 LV gram done using VIRK 13:32:43 Injector settings: Ml/sec: 5, Volume: 15, 13:33:07 EF : 55 % 13:33:34 Catheter removed. 13:34:04 Sheath upsized to a 6 Fr Short. 13:34:25 Pre PCI Site: [place] pLAD has 80% stenosis. 13:34:37 6 Fr xblad 3.5 guide catheter was inserted over the wire 13:35:14 bmw wire advanced. 13:35:25 Heparin Bolus 5000 units I.V. was administered by Kaveh Huerta RN; for anticoagulation; Verbal order read back and verified. 13:35:43 Integrilin (Bolus 2mg/ml) 6.8 ml I.V. was administered by Kaveh Huerta RN; for antiplatelet therapy; Verbal order read back and verified. 13:35:52 Integrilin (Bolus 2mg/ml) 3.2 ml wasted was administered by Kaveh Huerta RN; to sharp's; Verbal order read back and verified. 13:38:44 Wire advanced across lesion. 13:40:29 Place stent Inflation Number: 1 A COBRA RX 3.0 X 12 Stent was prepped and advanced across the Prox LAD 80. The stent was deployed at 14 CARLIE for 0:30 (min:sec) . 13:41:02 Post PCI Site: [place] pLAD has 0% stenosis. 13:41:05 ACC Post-intervention RANDALL Flow is 3. 13:41:15 Stent catheter was removed intact over wire. 13:41:16 Wire removed. 13:41:16 Guide catheter removed. 13:41:27 EXOSEAL 6Fr (EX600) opened to sterile field. 13:41:37 Sheath removed intact; hemostasis achieved with Exoseal to the Right Femoral artery. 13:41:57 Procedure ended.(Physican Out) 13:42:28 Fluoroscopy time 02.50 minutes. 13:42:31 Fluoroscopy dose: 525 mGy 13:42:31 Flurop Dose total: 525 13:42:37 Dose Area Product 40014 mGy/cm. 13:42:40 Contrast amount:Isovue 300 82ml. 13:42:42 Sharps counted by scrub and verified by R.N. 13:42:46 Insertion/operative site no bleeding no hematoma. 13:42:50 Post-op/insertion site Right Femoral artery dressed using a 4 x 4 and Tegaderm. 13:42:53 Post Procedure Pulses reassessed and unchanged 13:42:55 Post procedure rhythm: unchanged. 13:42:58 Estimated blood loss: 5 ml 13:43:00 Post procedure instruction explained to patient.Patient verbalizes understanding. 13:43:01 Patient needs reinforcement of post procedure teaching. 13:43:12 Procedure type changed to Cath procedure, Diagnostic procedure, LHC, C w/Coronaries, Sedation Charges, Moderate Sedation up to 15 minutes, PCI procedure, Coronary Stent, Coronary Stent Initial 13:43:12 Procedure and supply charges have been captured, reviewed, submitted and are correct. 13:43:20 Procedure Complication : No complications 13:43:24 Vital chart was stopped 13:43:25 See physician's report for complete and final results. 13:43:29 Report given to Pre/Post Procedure Room. 13:43:31 Patient transfered to Pre/Post Procedure Room with Stretcher. 13:43:34 Procedure ended. 13:43:34 Full Disclosure recording stopped 13:43:42 ACC-PCI Only Patient was given prescriptions, or instructed by Arvind Mao MD to start/continue the following medications upon discharge: Plavix 13:44:19 End room use (Document Last) 13:44:59 Plavix 600 mg P.O. was administered by Kaveh Huerta RN; for antiplatelet therapy; Verbal order read back and verified. 13:45:19 Zofran 4 mg I.V. was administered by Kaveh Huerta RN; for nausea; Verbal order read back and verified. Intervention Summary Intervention Notes Time ActionType Lesion and Equipment Action# Pressure Duration Attributes Used 13:40:29 Place stent Prox LAD COBRA RX 1 14 00:30 3.0 X 12 Stent Device Usage Item Name Manufacture Quantity Catalog Hospital Part Current Minimal Lot# / Number Charge Number Stock Stock Serial# Code ACIST Syringe Acist 1 63650 360968 054750 439588 20 (88323) Medical Systems Inc Bag Decanter Microtek 1 2001S 750642 46304 918465 5 (2001S) Medical Inc. Medline Cath Medline 1 [id number] 487957 94034 677719 5 Pack ([id number]) ACIST Hand Acist 1 06331 271149 695627 327408 5 Control Medical (68428) Systems Inc ACIST Manifold Acist 1 10735 645678 995402 792609 5 (47868) Medical Systems Inc DIAGNOSTIC Cardinal 1 [id number] 861213 65020 909891 30 Multipack 5Fr Health catheter set (HX9079) Tegaderm 4 x 4 3M 1 1626W 047217 615425 050748 5 (1626W) SHEATH 5FR Terumo 1 JAN650 679969 624969 026915 5 [place] (SMS615) EMERALD Guide Cardinal 1 502-455 136792 947779 925201 5 Wire (502455) Health MULTIPACK JL Cardinal 1 914411 5 4.0 5Fr Health catheter MULTIPACK 3DRC Cardinal 1 620940 5 5Fr catheter Health MULTIPACK Cardinal 1 699725 5 Pigtail 5 Fr Health catheter WHISPER 300cm Gauthier 1 [id number] 288384 513430 784650 5 guide wire Vascular ([id number]) GUIDE 6FR Cardinal 1 [id number] 646992 118661 579643 10 XBLAD 3.5 Health catheter ([id number]) INFLATOR Merit Merit 1 JP7846 105423 309549 448273 15 LocBox (NY2592) SHEATH 6FR Terumo 1 GRP542 851448 385029 270220 40 [place] (GXM866) COBRA RX 3.0 X Celonova 1 [id number] 532874 [id number] 2665380 9 [id number] 12 stent Biosciences (932-48-15109) EXOSEAL 6Fr Cardinal 1 EX600 623263 762876 434412 10 (EX600) Health Signature Audit Jupiter Stage Time Signature Unsigned Intra-Procedure 11/05/2018 Sveta Mccormack 1:48:46 PM RT(R) Intra-Procedure 11/05/2018 Kaveh 1:50:11 PM Deanna RICO Intra-Procedure 11/05/2018 Arvind Zeng 1:51:05 PM Clint TANG [facility] [address] [place] [address]
[2018-11-05] MEDS ORDERED: LISINOPRIL-HCT1 EAC7 PO (11:57)
[2018-11-05 12:05] VITALS: BP 137/62; Ht 170.2 cm; Wt 75.5 kg
[2018-11-05 12:44] LABS: BASOPHILS 1.2 % (0-2); CALC OSMOLALITY 278 mosm/kg (275-300); CARBON DIOXIDE 28.9 mmol/L (21.0-32.0); CHLORIDE - SERUM 103 mmol/L (98-107); CREATININE - SERUM 0.8 mg/dL (0.6-1.3); EOSINOPHILS 2.7 % (0-7); GLUCOSE 85 mg/dL (74-106); HEMATOCRIT 39.7 % (36.0-48.0); HEMOGLOBIN 13.9 g/dL (12-16); LYMPHOCYTES 37.6 % (15-50); MCH 28.4 pg (26.0-34.0); MCV 81.2 fL (80.0-100.0); MONOCYTES 8.1 % (2-11); NEUTROPHILS 50.4 % (40-80); PLATELET COUNT 247 10x3/uL (130-400); POTASSIUM - SERUM 3.8 mmol/L (3.5-5.1); RBC 4.89 10x6/uL (4.00-5.40); RDW 13.6 % (11.5-14.5); SODIUM 140 mmol/L (136-145); UREA NITROGEN 14 mg/dL (7-18); WBC 5.8 10x3/uL (4.8-10.8); eGFR NON AFRICAN AMERICAN 79 mL/min (90-120)
[2018-11-05 12:54] LABS: ALT (SGPT) 32 U/L (10-68); CHOLESTEROL, TOTAL 144 mg/dL (0-200); HDL CHOLESTEROL 48 mg/dL (32-96); LDL CHOLESTEROL 81 mg/dL (0-100); LDL-HDL RATIO 1.7 ratio (1.5-3.5); TRIGLYCERIDE 76 mg/dL (30-200)
[2018-11-05] MEDS ORDERED: BAYER CHEWABLE81 MG PO (13:57)
--- NOTE | 2018-11-05 14:00 | NUR ---
PT RECEIVED VIA STRETCHER FROM CLINICAL MEDICAL ASSISTANT FOR RECOVERY. PT PLACED ON MONITORS AND O2 PLACED AT 2L/NC. 6FR EXOCELE TO R GROIN, DRESSING CDI NO BLEEDING OR HEMATOMA NOTED. R LEG PINK AND WARM, PEDAL PULSES PALPABLE. IV INFUSING VIA ORDERS. PT INSTRUCTED TO KEEP HEAD ON PILLOW AND LEG STRAIGHT, SHE VERBALIZED UNDERSTANDING. FAMILY AT BEDSIDE, CALL LIGHT IN REACH
--- NOTE | 2018-11-05 14:36 | NUR ---
PT RESTING W EYES CLOSED, DENIES PAIN OR DISCOMFORT. R GROIN DRESSING CDI NO BLEEDING OR SWELLING NOTED. LEG PINK AND WARM, PEDAL PULSES PALPABLE. HR 62, BP 137/65, RR 13 SAT 99. FAMILY AT BEDSIDE, CALL LIGHT IN REACH
--- NOTE | 2018-11-05 15:00 | NUR ---
PT RESTING W EYES CLOSED. R GROIN SOFT, DRESSING CDI NO BLEEDING OR HEMATOMA NOTED. R LEG PINK AND WARM, PEDAL PULSES PALPABLE. FAMILY AT BEDSIDE. VSS. CALL LIGHT IN REACH
--- NOTE | 2018-11-05 15:20 | NUR ---
PT STILL RESTING W EYES CLOSED. R GROIN DRESSING REMAINS CDI NO BLEEDING OR SWELLING NOTED. PT DENIES PAIN OR NEEDS AT THIS TIME. VSS. LEG PINK AND WARM, PEDAL PULSES PALPABLE. CALL LIGHT IN REACH
--- NOTE | 2018-11-05 15:45 | NUR ---
NO CHANGE IN PT CONDITION. R GROIN DRESSING REMAINS CDI NO BLEEDING OR SWELLING NOTED. VSS. CALL LIGHT IN REACH
--- NOTE | 2018-11-05 16:15 | NUR ---
PT RESTING COMFORTABLY, R GROIN DRESSING REMAINS CDI NO BLEEDING OR SWELLING NOTED. LEG PINK AND WARM, PEDAL PULSES REMAIN PALPABLE. CALL LIGHT IN REACH
--- NOTE | 2018-11-05 16:47 | NUR ---
R GROIN SOFT, NO BLEEDING OR SWELLING NOTED. HOB ELEVATED SLIGHTLY. SANDWICH AND DRINK SERVED. VSS. DENIES OTHER NEEDS AT THIS TIME.
--- NOTE | 2018-11-05 17:14 | NUR ---
PT DOING WELL, VISITING W FAMILY. R GROIN REMAINS SOFT, DRESSING CDI NO BLEEDING OR HEMATOMA NOTED. DENIES NEEDS. TOLERATED SANDWICH W/O NAUSEA. CALL LIGHT IN REACH
--- NOTE | 2018-11-05 17:30 | NUR ---
DISCHARGE INSTRUCTIONS REVIEWED W PT AND , BOTH VERBALIZED UNDERSTANDING. EXPLAINED THE IMPORTANCE OF STARTING PLAVIX TOMORROW. IV REMOVED W CATH INTACT, MONITORS REMOVED AND PT UP TO DRESS FOR DISCHARGE. 1735 PT AMBULATED TO BR, VOIDING W/O DIFFICULITY.
--- NOTE | 2018-11-05 17:38 | NUR ---
PT DISCHARGED TO IN PRIVATE VEHICLE WITH ALL BELONGINGS AND DISCHARGE PAPERWORK.
--- NOTE | 2018-11-06 13:08 | OP ---
PATIENT NAME: SEYMOUR WHITNEY MEDICAL RECORD: [id number] :61 LOCATION:[facility] ADMISSION DATE: SURGEON: KAHLIL ROD MD DATE OF OPERATION: 11/05/2018 PROCEDURES: Left heart catheterization, selective coronary angiography, right femoral artery approach. CATHETERS: A 5-Hungarian sheath, 5/4 left and right Flores, 5/4 pig. The procedure was well tolerated. The patient returned to the manzo, sheath removed. ExoSeal device placed. FINDINGS: Left ventriculography in 30-degree VIRK view, normal wall motion, normal systolic function. CORONARY ANATOMY: LEFT MAIN: Left main is free of disease. LAD: Has discrete 80% stenosis at the takeoff of the first septal branch correlating nicely with nuclear study. CIRCUMFLEX: Circumflex was free of disease. RIGHT CORONARY ARTERY: The right coronary artery is a large, dominant right. Widely patent stent, no progression of nome disease. IMPRESSION: Progression of LAD disease. Plan on intervention to the LAD momentarily. DESCRIPTION OF PROCEDURE: A 5-Hungarian sheath was exchanged for a 6-Hungarian sheath. XB LAD guiding catheter provided excellent guiding catheter support. This was followed by 300 cm Whisper wire, which was placed across tightly occluded LAD at the distal portion of vessel. Stent deployed was a 3.0 x 12 Cobra stent up to 14 atmospheres for 45 seconds. Final angiography showed excellent resolution of 90% stenosis to no significant residual. Nice step up and step down. RANDALL flow was 3 throughout the procedure. Sheath closed with ExoSeal device. Plavix loaded in the lab. TRANSINT:[id number] Voice Confirmation ID: [id number] DOCUMENT ID: [id number] KAHLIL ROD MD at 1308 CC: [id number] DICTATION DATE: 11/05/18 135 TRANSPORTATION ENGINEER: 11/05/18 7182 DEP CLI 11/05/18 [facility] [address] [place] [address]
== END 2018-11-05 17:35 | disposition home or self-care (01) ==
LOC: D.CATH 10:31
PROVIDERS: ATTEND Internal Medicine Interventional Cardiology
DX: I25.110 Atherosclerotic heart disease of native coronary artery with unstable angina pectoris (principal); R94.30 Abnormal result of cardiovascular function study, unspecified

== ENCOUNTER 2018-12-26 09:00 | Outpatient (CLI) | payer MEDICARE ==
[2018-11-05 12:05] VITALS: BMI 26.0
[~2018-12-26 09:00] MED LIST changes: +BAYER CHEWABLE81 MG PO; +LISINOPRIL-HCT1 EAC7 PO
== END 2018-12-26 10:00 | disposition home or self-care (01) ==
LOC: D.MAMMO 09:00
PROVIDERS: ATTEND Nurse Practitioner Family
DX: Z12.31 Encounter for screening mammogram for malignant neoplasm of breast (principal)